=== PATIENT | female | born 1975 | race Caucasian/White ===

== ENCOUNTER 2018-01-12 22:02 | Emergency (ER) | payer OTHER ==
[2018-01-12 22:37] VITALS: BP 129/86; PULSE 74; RESP 20; TEMP 98.3; O2SAT 98
--- NOTE | 2018-01-12 23:14 | C.PDOC ---
History Of Present Illness 42 year old female presents to the ED c/o tingling sensation to the left forearm and fingers for "long time". Patient noticed a bump in her left arm today which prompted the visit to the ED today. Patient denies injury, fall, trauma, CP, upper arm pain, SOB, weakness, numbness. Time Seen by Provider: 01/12/18 22:59 Chief Complaint (Nursing): Upper Extremity Problem/Injury History Per: Patient History/Exam Limitations: no limitations Onset/Duration Of Symptoms: Days Current Symptoms Are (Timing): Still Present Quality: "Pain" Recent travel outside of the [place]: No Additional History Per: Patient Past Medical History Reviewed: Historical Data, Nursing Documentation, Vital Signs Vital Signs: Last Vital Signs Temp 98.3 F 01/12/18 22:29 Pulse 74 01/12/18 22:29 Resp 20 01/12/18 23:23 BP 129/86 01/12/18 22:29 Pulse Ox 98 01/13/18 01:13 - Medical History PMH: Hypothyroidism Surgical History: Family History: States: Unknown Family Hx - Social History Hx Tobacco Use: No Hx Alcohol Use: No Hx Substance Use: No - Immunization History Hx Tetanus Toxoid Vaccination: No Hx Influenza Vaccination: No Hx Pneumococcal Vaccination: No Review Of Systems Constitutional: Negative for: Fever, Chills Cardiovascular: Negative for: Chest Pain Respiratory: Negative for: Shortness of Breath Gastrointestinal: Negative for: Nausea, Vomiting Musculoskeletal: Positive for: Arm Pain Skin: Negative for: Rash Neurological: Negative for: Weakness, Numbness, Headache, Dizziness Physical Exam - Physical Exam Appears: Non-toxic, No Acute Distress Skin: Normal Color, Warm, Dry, Other (small pimple on left wrist) Head: Atraumatic, Normacephalic Eye(s): bilateral: Normal Inspection Cardiovascular: Rhythm Regular, No Murmur Respiratory: Normal Breath Sounds, No Wheezing Extremity: Capillary Refill (< 2 seconds) Extremity: Bilateral: Atraumatic, Normal Color And Temperature, Normal ROM Pulses: Left Radial: Normal, Right Radial: Normal Neurological/Psych: Oriented x3, Normal Speech, Normal Motor, Normal Sensation Gait: Steady ED Course And Treatment O2 Sat by Pulse Oximetry: 98 (ON RA) Pulse Ox Interpretation: Normal Progress Note: On reassessment, patient is resting comfortably, and is in no acute distress. Patient was instructed to follow up with physician/clinic in 1- 2 days for further evaluation. Disposition Counseled Patient/Family Regarding: Diagnosis, Need For Followup, Rx Given - Disposition Referrals: [facility] [Outside] Disposition: HOME/ ROUTINE Disposition Time: 23:12 Condition: STABLE Additional Instructions: Please follow up with your doctor Take tylenol or advil for pain Return to ER if worse Instructions: Paresthesias (DC) Forms: [employer] ([place]), Work Excuse - Clinical Impression Clinical Impression: Arm paresthesia, left - PA / [employer] / Resident Statement MD/DO has reviewed & agrees with the documentation as recorded. - Scribe Statement The provider has reviewed the documentation as recorded by the Scribe Shamir Wright All medical record entries made by the Scribe were at my direction and personally dictated by me. I have reviewed the chart and agree that the record accurately reflects my personal performance of the history, physical exam, medical decision making, and the department course for this patient. I have also personally directed, reviewed, and agree with the discharge instructions and disposition.
== END 2018-01-12 23:23 | disposition home or self-care (01) ==
LOC: C.ER 22:02
DX: R20.2 Paresthesia of skin (principal)